=== PATIENT | female | born 1940 | race Caucasian/White ===

== ENCOUNTER 2019-07-04 07:12 | Day surgery (SDC) | payer MEDICARE ==
[~2019-07-04] VITALS: Ht 162.6 cm; Wt 82.9 kg
[~2019-07-04 07:12] MED LIST: AMLO10; CLARITIN10 MG; LOSA50; MAGCHL64ER; OMEPRAZOLE20 MG
== END 2019-07-04 09:02 | disposition home or self-care (01) ==
LOC: ORSCSDS 07:12
PROVIDERS: Surgery
PROC: 0DJD8ZZ Inspection of Lower Intestinal Tract, Via Natural or Artificial Opening Endoscopic (ICD-10-PCS; principal; 2019-07-04 07:30)
DX: Z12.11 Encounter for screening for malignant neoplasm of colon (principal); K57.30 Diverticulosis of large intestine without perforation or abscess without bleeding; Z86.010 Personal history of colon polyps; I10 Essential (primary) hypertension; I35.0 Nonrheumatic aortic (valve) stenosis; Z79.899 Other long term (current) drug therapy
CPT/HCPCS: 93005; 93010; J2704; J7120

== ENCOUNTER 2019-08-18 07:23 | Day surgery (SDC) | payer MEDICARE | END 2019-08-18 22:49 | disposition home or self-care (01) | LOC: MOI US 07:23 → MOI MAM 07:45 → MOI US 07:45 | DX: C50.812 Malignant neoplasm of overlapping sites of left female breast (principal) | CPT/HCPCS: 19083; 77065; 88305; 88360; A4648; G0279 ==

== ENCOUNTER 2019-09-29 08:03 | Day surgery (SDC) | payer MEDICARE ==
[~2019-09-29 08:03] MED LIST changes: -AMLO10; +AMLO10 PO; -CLARITIN10 MG; +CLARITIN10 MG PO; -LOSA50; +LOSA50 PO; -MAGCHL64ER; +MAGCHL64ER PO; -OMEPRAZOLE20 MG; +OMEPRAZOLE20 MG PO
== END 2019-09-29 22:55 | disposition home or self-care (01) ==
LOC: MOI US 08:03
DX: C50.912 Malignant neoplasm of unspecified site of left female breast (principal)
CPT/HCPCS: 19285; 38505; 77065; G0279

== ENCOUNTER 2019-10-13 08:58 | Day surgery (SDC) | payer MEDICARE ==
[~2019-10-13] VITALS: Ht 163 cm; Wt 83.4 kg
--- NOTE | 2019-10-13 15:12 | NUR ---
Discharge instructions reviewed with patient. Patient verbalizes understanding. Copy given to patient to take home. Dressing to procedure site clean, dry, intact with no visible drainage, swelling, erythema or bruising noted. Patient up to Ambulate independently. Gait steady. Patient States Post-Procedure ride home has been arranged. Discharged via wheelchair to private car for ride home. ALL BELONINGS RETURNED TO PATIENT. BILAT HEARING AIDES, GKASSES, UPPER DENTURES PLUS CLOTHING AND TABLET GIVEN TO FRIEND.
[2019-10-13] MEDS ORDERED: COQ1050 MG PO (16:25)
[2019-10-13] MEDS ORDERED: THERA-D2000 UNIT PO (16:25)
[2019-10-13] MEDS ORDERED: B Complex-Foli1 EACH PO (16:35)
[2019-10-13] MEDS ORDERED: GLUCOSAMINE CO1 EACH PO (16:35)
[2019-10-13] MEDS ORDERED: FIBER GUMMIES2 GM PO (16:36)
[2019-10-13] MEDS ORDERED: HAIR SKIN NAIL1 EACH PO (16:36)
--- NOTE | 2019-10-14 14:19 | NUR ---
10/14/19 1419 Aleida Morales VERIFICATIONS: EDIT CHART.
== END 2019-10-13 23:03 | disposition home or self-care (01) ==
LOC: NM 08:58 → ORSCMMR 08:58 → NM 09:30
PROVIDERS: Surgery
PROC: 07B60ZX Excision of Left Axillary Lymphatic, Open Approach, Diagnostic (ICD-10-PCS; principal; 2019-10-13 10:30)
PROC: 0HBU0ZZ Excision of Left Breast, Open Approach (ICD-10-PCS; principal; 2019-10-13 10:30)
PROC: 0HHU0NZ Insertion of Tissue Expander into Left Breast, Open Approach (ICD-10-PCS; principal; 2019-10-13 10:30)
DX: C50.812 Malignant neoplasm of overlapping sites of left female breast (principal); D36.0 Benign neoplasm of lymph nodes; I10 Essential (primary) hypertension; K21.9 Gastro-esophageal reflux disease without esophagitis; E78.5 Hyperlipidemia, unspecified; Z87.891 Personal history of nicotine dependence; Z79.899 Other long term (current) drug therapy
CPT/HCPCS: 38792; 76098; 88307; 88342; A9270-GY; A9520; J0690; J1885; J2370; J2704; J3010; J7120; Q9968

== ENCOUNTER 2019-10-16 10:18 | Day surgery (SDC) | payer MEDICARE ==
[~2019-10-16] VITALS: Ht 162.6 cm; Wt 85.6 kg
[~2019-10-16 10:18] MED LIST changes: +B Complex-Foli1 EACH PO; +COQ1050 MG PO; +FIBER GUMMIES2 GM PO; +GLUCOSAMINE CO1 EACH PO; +HAIR SKIN NAIL1 EACH PO; +THERA-D2000 UNIT PO
--- NOTE | 2019-10-16 11:49 | NUR ---
1110 AMBULATE TO [facility], COFIRMED SURGEON AND SURGERY. PRE OP TEACHING DONE. PT HAS BREAST BINDER IN PLACE AND BRIE CATH VISIBLE INCISION CLEAR. INSTRUCTED PT THAT GLASSESS DENTURES AND BILAT HEARING AIDS WILL BE LABELED AND PACED IN PACU FOR AFTER SURGERY. 1130 AT BED SIDE
--- NOTE | 2019-10-17 07:20 | NUR ---
10/17/19 0720 Aleida Morales VERIFICATIONS: EDIT CHART.
== END 2019-10-16 14:41 | disposition home or self-care (01) ==
LOC: ORSCMMR 10:18 → ORD 12:00 → ORSCMMR 14:41
PROVIDERS: Surgery
PROC: 0WH803Z Insertion of Infusion Device into Chest Wall, Open Approach (ICD-10-PCS; principal; 2019-10-16 12:00)
DX: C50.812 Malignant neoplasm of overlapping sites of left female breast (principal); I10 Essential (primary) hypertension; E78.5 Hyperlipidemia, unspecified; K21.9 Gastro-esophageal reflux disease without esophagitis; Z87.891 Personal history of nicotine dependence; Z79.899 Other long term (current) drug therapy; E66.9 Obesity, unspecified; Z68.32 Body mass index [BMI] 32.0-32.9, adult
CPT/HCPCS: C1728; J2250; J2704; J3010; J7120

== ENCOUNTER 2021-02-07 09:23 | Day surgery (SDC) | payer MEDICARE ==
[~2021-02-07] VITALS: Ht 162.6 cm; Wt 84.5 kg
[~2021-02-07 09:23] MED LIST changes: +ANAS1 PO; +UBID10 PO
[2021-02-07] MEDS ORDERED: Aspir 8181 MG PO (09:46)
--- NOTE | 2021-02-07 14:00 | NUR ---
1350 SABR FROM [facility]. ASSUMED CARE OF PATIENT. AIR REMVOED FROM THE TR BAND AND BLEEDING NOTED AFTER A FEW MINTUES. 4 ML OF AIR REPLACED IN THE TR BAND. CLEANED SITE AND NO FURTHER BLEEDING NOTED AT THIS TIME.
--- NOTE | 2021-02-07 15:40 | NUR ---
PT DRESSED SELF, GROIN SITE STABLE. RIGHT RADIAL SITE CLEANSED AND CLOTH DOT DRESSING PLACED. SALINE LOCK REMOVED WITH CATHETER INTACT. DISCHARGE INSTRUCTIONS REVIEWED AND PT VERBALIZES UNDERSTANDING OF INSTRUCTIONS. PT TO PRIVATE VEHICLE PER W/C WITH ONE STAFF.
== END 2021-02-07 15:30 | disposition home or self-care (01) ==
LOC: MHTC 09:23
DX: I35.0 Nonrheumatic aortic (valve) stenosis (principal); I10 Essential (primary) hypertension; I25.10 Atherosclerotic heart disease of native coronary artery without angina pectoris; E78.5 Hyperlipidemia, unspecified; Z79.82 Long term (current) use of aspirin; Z87.891 Personal history of nicotine dependence
CPT/HCPCS: 93454; 99152; 99153; C1769; C1894; J1644; J2250; J3010; J7030; Q9967

== ENCOUNTER 2021-05-04 13:05 | Emergency (ER) | payer MEDICARE ==
[~2021-05-04] VITALS: Ht 162.6 cm; Wt 83.9 kg
[~2021-05-04 13:05] MED LIST changes: +Aspir 8181 MG PO
[2021-05-04 13:58] LABS: BASOPHILS ABSOLUTE AUTO 0.02 K/mm3 (0.00-0.23); BASOPHILS PERCENT AUTO 0 % (0-2); EOSINOPHILS ABSOLUTE AUTO 0.13 K/mm3 (0.00-0.68); EOSINOPHILS PERCENT AUTO 2 % (0-6); Hematocrit 36.1 % (33.0-51.0); Hemoglobin 12.1 g/dL (11.5-16.0); IMMATURE GRAN ABSOLUTE AUTO 0.02 K/mm3 (0.00-0.10); IMMATURE GRAN PERCENT AUTO 0 % (0-1); LYMPHOCYTES ABSOLUTE AUTO 1.48 K/mm3 (0.84-5.20); LYMPHOCYTES PERCENT AUTO 28 % (21-46); MONOCYTES PERCENT AUTO 9 % (4-13); Mean Corpuscular HGB 31.5 pg (26.0-34.0); Mean Corpuscular HGB Conc 33.5 g/dL (31.5-36.5); Mean Corpuscular Volume 94 fL (80-100); Mean Platelet Volume 9.3 fL (9.1-12.4); NEUTROPHILS PERCENT AUTO 60 % (41-73); Platelet Count 157 K/mm3 (150-400); RDW Coefficient Variation 12.9 % (11.7-14.2); RDW Standard Deviation 44.4 fL (35.1-46.3); Red Blood Cell Count 3.84 M/mm3 (3.80-5.20); White Blood Cell Count 5.35 K/mm3 (4.00-11.30)
[2021-05-04 14:16] LABS: Alanine Aminotransfer (ALT/SGP 29 U/L (12-78); Albumin, Blood 4.1 g/dL (3.4-5.0); Albumin/Globulin Ratio 1.2 (0.8-1.8); Alk Phos 54 U/L (50-136); Anion Gap 9 mmol/L (6-16); Aspartate Aminotrans (AST/SGOT 27 U/L (12-37); Bilirubin, Total 0.8 mg/dL (0.1-1.0); Blood Urea Nitrogen 11 mg/dL (8-24); Bun/Creatinine Ratio 12.9 (12.0-20.0); CO2, Blood 24 mmol/L (21-32); Calcium, Blood 9.3 mg/dL (8.5-10.1); Chloride, Blood 103 mmol/L (98-108); Creatinine, Blood 0.86 mg/dL (0.40-1.00); Globulin, Blood 3.5 g/dL (2.2-4.0); Glomerular Filtration Rate >60 (60-); Glucose, Blood 112 mg/dL (70-99); Potassium, Blood 3.8 mmol/L (3.5-5.5); Sodium, Blood 136 mmol/L (136-145); Total Protein, Blood 7.6 g/dL (6.4-8.2)
[2021-05-04] MEDS ORDERED: CEPH500 PO (15:02)
== END 2021-05-04 15:14 | disposition home or self-care (01) ==
LOC: ER 13:05
PROVIDERS: Physician Assistant
DX: Z48.01 Encounter for change or removal of surgical wound dressing (principal); L08.9 Local infection of the skin and subcutaneous tissue, unspecified; M79.604 Pain in right leg; Z88.0 Allergy status to penicillin; Z88.2 Allergy status to sulfonamides; Z87.891 Personal history of nicotine dependence
CPT/HCPCS: 36415; 76882; 80053; 85025; 99283-25

== ENCOUNTER 2021-05-07 08:27 | Emergency (ER) | payer MEDICARE ==
[~2021-05-07] VITALS: Ht 162.6 cm; Wt 83.9 kg
[~2021-05-07 08:27] MED LIST changes: +CEPH500 PO
== END 2021-05-07 09:46 | disposition home or self-care (01) ==
LOC: ER 08:27
DX: Z48.00 Encounter for change or removal of nonsurgical wound dressing (principal); Z88.0 Allergy status to penicillin; Z88.2 Allergy status to sulfonamides; Z88.8 Allergy status to other drugs, medicaments and biological substances; Z79.899 Other long term (current) drug therapy; Z79.4 Long term (current) use of insulin
CPT/HCPCS: 99282

== ENCOUNTER 2025-03-02 12:01 | Day surgery (SDC) | payer MEDICARE ==
[~2025-03-02] VITALS: Ht 162.6 cm; Wt 82.9 kg
[~2025-03-02 12:01] MED LIST changes: +FentaNYL Citrate 50 MCG/ML 2 ML Injection ONE; +Lactated Ringer's 1,000 ML IV ONE; +Lidocaine HCl 2% 10 ML SDA ONE; +Midazolam HCl 1MG / ML 2ML Vial ONE; +propofoL 20 ML IV ONE
[2025-03-02] MEDS ORDERED: METAMUCIL174 GM (12:30)
[2025-03-02] MEDS ORDERED: Lactated Ringer's 1,000 ML IV ONE (12:45)
[2025-03-02] MEDS ORDERED: CeFAZolin Sodium 2,000 MG VIAL ONE (12:50)
[2025-03-02] MEDS ORDERED: NS 50 ML IV ONE (12:50)
--- NOTE | 2025-03-02 13:52 | NUR ---
03/02/25 1352 Katie Alva ICE PACK APPLIED TO RIGHT ARM
[2025-03-02 14:09] VITALS: BP 141/61
--- NOTE | 2025-03-02 14:09 | NUR ---
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 UPPER DENTURES RETURNED TO PATIENT
== END 2025-03-02 14:38 | disposition home or self-care (01) ==
LOC: ORSCSDS 12:01
PROVIDERS: Orthopaedic Surgery
PROC: 0JNJ0ZZ Release Right Hand Subcutaneous Tissue and Fascia, Open Approach (ICD-10-PCS; principal; 2025-03-02 13:30)
DX: M72.0 Palmar fascial fibromatosis [Dupuytren] (principal); I10 Essential (primary) hypertension; I25.10 Atherosclerotic heart disease of native coronary artery without angina pectoris; K21.9 Gastro-esophageal reflux disease without esophagitis; Z79.899 Other long term (current) drug therapy
CPT/HCPCS: J0690; J2003; J2250; J2704; J3010; J7120

== ENCOUNTER 2025-07-23 07:55 | Day surgery (SDC) | payer MEDICARE ==
[~2025-07-23] VITALS: Ht 162.6 cm; Wt 80.8 kg
[~2025-07-23 07:55] MED LIST changes: -FentaNYL Citrate 50 MCG/ML 2 ML Injection ONE; -Lactated Ringer's 1,000 ML IV ONE; -Lidocaine HCl 2% 10 ML SDA ONE; +METAMUCIL174 GM; -Midazolam HCl 1MG / ML 2ML Vial ONE; -propofoL 20 ML IV ONE
[2025-07-23] MEDS ORDERED: CeFAZolin Sodium 2,000 MG VIAL ONE (08:06)
[2025-07-23] MEDS ORDERED: Lidocaine HCl 2% 10 ML SDA ONE (08:13)
[2025-07-23] MEDS ORDERED: Metoclopramide HCl 5MG / ML 2ML Vial ONE (08:23)
[2025-07-23] MEDS ORDERED: Ondansetron HCl 2 MG / ML 2ML Vial ONE (08:23)
[2025-07-23] MEDS ORDERED: FentaNYL Citrate 50 MCG/ML 2 ML Injection ONE (08:23)
--- NOTE | 2025-07-23 09:00 | NUR ---
07/23/25 0900 Poonam Wright PT WAS NOTED TO HAVE A BRUISE ON THE LEFT SIDE, MID AXILLARY AREA.
[2025-07-23] MEDS ORDERED: Sugammadex Sodium 200 MG/2ML SDV (100 MG/ML) ONE (09:32)
[2025-07-23 10:20] VITALS: BP 132/67
== END 2025-07-23 10:20 | disposition home or self-care (01) ==
LOC: ORSCSDS 07:55
PROVIDERS: Orthopaedic Surgery
PROC: 0JNK0ZZ Release Left Hand Subcutaneous Tissue and Fascia, Open Approach (ICD-10-PCS; principal; 2025-07-23 10:00)
DX: M72.0 Palmar fascial fibromatosis [Dupuytren] (principal); I10 Essential (primary) hypertension; I25.10 Atherosclerotic heart disease of native coronary artery without angina pectoris; K21.9 Gastro-esophageal reflux disease without esophagitis; E66.9 Obesity, unspecified; Z68.31 Body mass index [BMI] 31.0-31.9, adult; Z79.899 Other long term (current) drug therapy
CPT/HCPCS: J0690; J2003; J2405; J2704; J2765; J3010; J7120